=== PATIENT | male | born 1990 | race Two or more races ===

== ENCOUNTER 2020-03-23 05:12 | Emergency (ER) | payer OTHER ==
[~2020-03-23] VITALS: Ht 180.3 cm; Wt 113.4 kg
[2020-03-23 05:21] VITALS: Ht 180.3 cm; Wt 113.4 kg
[2020-03-23 06:22] LABS: CALCIUM 8.5 mg/dL (8.5-10.1); CHLORIDE SERUM 104 mmol/L (98-107); CREATININE SERUM 1.3 mg/dL (0.7-1.3); GFR1 > 60 mL/min; GLUCOSE SERUM 118 mg/dL (74-106); POTASSIUM SERUM 3.3 mmol/L (3.5-5.1); SODIUM SERUM 140 mmol/L (136-145)
[2020-03-23 06:26] LABS: BASOPHIL % 0.2 % (0-2); PLATELET COUNT 246 x10^3mcL (130-400); RED CELL DISTRIBUTION WIDTH 12.8 % (11.5-14.5)
[2020-03-23 11:24] VITALS: BP 114/57
== END 2020-03-23 11:24 | disposition home or self-care (01) ==
LOC: ED 05:12
PROVIDERS: Emergency Medicine
DX: S62.307A Unspecified fracture of fifth metacarpal bone, left hand, initial encounter for closed fracture (principal); S62.615A Displaced fracture of proximal phalanx of left ring finger, initial encounter for closed fracture; S81.011A Laceration without foreign body, right knee, initial encounter; V29.9XXA Motorcycle rider (driver) (passenger) injured in unspecified traffic accident, initial encounter; Y93.I9 Activity, other involving external motion; Y92.413 State road as the place of occurrence of the external cause; Y99.8 Other external cause status
CPT/HCPCS: 90715; J1885; J2001; J2270; J2405; Q0092

== ENCOUNTER 2020-03-29 11:41 | Emergency (ER) | payer OTHER | END 2020-03-29 11:50 | disposition left against medical advice (07) | LOC: ED 11:41 | DX: Z53.21 Procedure and treatment not carried out due to patient leaving prior to being seen by health care provider (principal) ==